=== PATIENT | female | born 1995 | race Caucasian/White ===

== ENCOUNTER 2019-03-26 13:58 | Emergency (ER) | payer OTHER ==
[~2019-03-26] VITALS: Ht 177.8 cm; Wt 68.5 kg
[~2019-03-26 13:58] MED LIST: SULF1TAB31 PO
[2019-03-26 14:01] VITALS: BP 129/80; PULSE 91; RESP 18; Ht 177.8 cm; Wt 68.5 kg
--- NOTE | 2019-03-26 15:02 | ERD ---
ER Documentation Chief Complaint Chief Complaint laceration on bilateral lower legs x1wk, home care no working HPI 23-year-old female with no reported past medical or surgical history presents with complaint of laceration to bilateral lower extremities. Patient states she was rollerblading about a week ago when she sustained 2 superficial lacerations to both legs on a dog leash. Has been at home applying spray on hydrogen peroxide and Neosporin to wound at home. She states that wound is not deep and should show the provider picture which shows superficial laceration with the larger one on the right lower brooks of the right lower extremity. Since that time she been having worsening redness to area. There is still mildly tender. Patient without any neurovascular complaints. ROS All systems reviewed and are negative except as per history of present illness. Medications Home Meds Active Scripts Sulfamethoxazole/Trimethoprim* (Bactrim Ds* Tablet) 1 Each Tablet, 1 TAB PO BID, #14 TAB Prov:LOI PETTY PA-C 03/26/19 Allergies Allergies: Coded Allergies: Penicillins (Verified Allergy, Unknown, 03/26/19) benzoyl peroxide (Unverified Allergy, Unknown, 03/26/19) FmHx Family History: No diabetes, No coronary disease, No other Physical Exam Vitals Vital Signs Date Temp Pulse Resp B/P (MAP) Pulse Ox O2 O2 Flow FiO2 Time Delivery Rate 03/26/19 98.5 91 18 129/80 98 14:01 (96) Physical Exam Const: No acute distress Head: Atraumatic Eyes: Normal Conjunctiva ENT: Normal External Ears, Nose and Mouth. Neck: Full range of motion. No meningismus. Resp: Clear to auscultation bilaterally Cardio: Regular rate and rhythm, no murmurs Abd: Soft, non tender, non distended. Normal bowel sounds Skin: No petechiae or rashes Back: No midline or flank tenderness Ext: No cyanosis, or edema, right lower extremity lower brooks with superficial laceration closed and healing with surrounding erythema, no area of fluctuance, no discharge noted, left lower extremity brooks with superficial laceration that is healing Neur: Awake and alert Psych: Normal Mood and Affect Procedures/MDM 23-year-old female presents with superficial laceration of bilateral lower extremity/brooks. Right lower extremity wound state of healing but does have some surrounding erythema. She is otherwise afebrile. Given nature of wound and surrounding erythema will prophylactically treat with short course of antibiotics for presumed cellulitis. Patient instructed to cease hydrogen peroxide use to area. Strict return precautions explained in detail. DISPOSITION PLAN: We discussed follow up with the patient's primary care doctor within 24 to 48 hours. Patient counseled regarding my diagnostic impression and care plan. Prior to discharge all questions answered. Pt agrees with treatment plan and understands strict return precautions. Precautionary instructions provided including instructions to return to the ER if not improving or for any worsening or changing symptoms or concerns. Disclaimer: Inadvertent spelling and grammatical errors are likely due to EHR/dictation software use and do not reflect on the overall quality of patient care. Also, please note that the electronic time recorded on this note does not necessarily reflect the actual time of the patient encounter. Departure Diagnosis: Primary Impression: Laceration Condition: Stable Additional Instructions: Call your primary care doctor TOMORROW for an appointment during the next 2-3 days.See the doctor sooner or return here if your condition worsens before your appointment time. LOI PETTY PA-C Mar 26, 2019 15:02
== END 2019-03-26 15:24 | disposition home or self-care (01) ==
LOC: FTE 13:58
DX: S81.811A Laceration without foreign body, right lower leg, initial encounter (principal); S81.812A Laceration without foreign body, left lower leg, initial encounter; X58.XXXA Exposure to other specified factors, initial encounter; Y92.9 Unspecified place or not applicable
CPT/HCPCS: 99283